=== PATIENT | female | born 1990 | race Asian ===

== ENCOUNTER 2019-03-17 23:23 | Emergency (ER) | payer SELFPAY ==
[2019-03-18] MEDS ORDERED: Bacitracin OINTMENT* 0.5% 0.5 oz TUBE TOPICAL ONE (00:47)
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
[2019-03-18 01:05] VITALS: BP 115/64
== END 2019-03-18 01:04 | disposition home or self-care (01) ==
LOC: ED 23:23
DX: T20.20XA Burn of second degree of head, face, and neck, unspecified site, initial encounter (principal); T20.27XA Burn of second degree of neck, initial encounter; X10.2XXA Contact with fats and cooking oils, initial encounter; Y92.9 Unspecified place or not applicable; Z79.899 Other long term (current) drug therapy
CPT/HCPCS: 99282; A9270-GY